=== PATIENT | female | born 1940 | race Caucasian/White ===

== ENCOUNTER → 2020-02-23 | Outpatient (CLI) | payer MEDICARE, OTHER ==
--- NOTE | 2020-02-23 16:55 | Diagnostic Imaging Report ---
INDICATION: Right shoulder pain. COMPARISON: None available. TECHNIQUE: Three views of the right shoulder are obtained. FINDINGS: There is some subchondral irregularity involving the superior aspect of the humeral head. There is some ill definition in the superior glenoid as well. There appear to be some erosive changes of the distal clavicle. No appreciable fracture. IMPRESSION: 1. Nonspecific erosive changes are present involving the glenohumeral and acromioclavicular joints. This raises the possibility of septic arthritis. If patient is able, MRI of the right shoulder without and with IV contrast may be beneficial for further assessment. Alternatively, consider arthrocentesis for further assessment. Dictated by: Dictated on workstation # [id number]
== END ==
LOC: RAD FS 15:27
PROVIDERS: ATTEND Family Medicine
DX: M25.511 Pain in right shoulder (principal)
CPT/HCPCS: 73030

== ENCOUNTER 2020-06-14 17:33 | Emergency (ER) | payer MEDICARE ==
[~2020-06-14] VITALS: Ht 152.4 cm; Wt 53.7 kg
[2020-06-14] MEDS ORDERED: ONDANSETRON 4 MG (ZOFRAN) ORAL DISSOLVE TAB PO STA (17:53)
[2020-06-14] MEDS ORDERED: LIDOCAINE 1% INJ 20 ML 20 ML VIAL ONE (18:05)
[2020-06-14] MEDS ORDERED: LIDOCAINE/EPI 2% 1:100,00 (XYLOCAINE) 20 ML VIAL ONE (18:15)
[2020-06-14 18:16] LABS: BASOPHILS % (AUTO) 0 % (0-10); EOSINOPHILS # (AUTO) 0.1 10^3/uL (0.0-0.3); EOSINOPHILS % (AUTO) 1 % (0-10); HEMATOCRIT 29 % (35-52); HEMOGLOBIN 9.5 G/DL (11.5-16.0); LYMPHOCYTES # (AUTO) 1.2 X 10^3 (1.0-4.0); LYMPHOCYTES % (AUTO) 10 % (12-44); MEAN CORPUSCULAR HEMOGLOBIN 30 PG (25-34); MEAN CORPUSCULAR HGB CONC 32 G/DL (32-36); MEAN CORPUSCULAR VOLUME 92 FL (80-99); MEAN PLATELET VOLUME 8.8 FL (7.4-10.4); MONOCYTES # (AUTO) 0.7 X 10^3 (0.0-1.0); MONOCYTES % (AUTO) 7 % (0-12); NEUTROPHILS # (AUTO) 9.1 X 10^3 (1.8-7.8); NEUTROPHILS % (AUTO) 81 % (42-75); PLATELET COUNT 339 10^3/uL (130-400); WHITE BLOOD COUNT 11.1 10^3/uL (4.3-11.0)
[2020-06-14 18:25] LABS: ALBUMIN 3.6 GM/DL (3.2-4.5); BILIRUBIN,TOTAL 0.3 MG/DL (0.1-1.0); CALCIUM 9.7 MG/DL (8.5-10.1); CREATININE SERUM 10.44 MG/DL (0.60-1.30); TOTAL PROTEIN 6.6 GM/DL (6.4-8.2)
[2020-06-14 18:26] LABS: BAND NEUTROPHILS 1 %; EOSINOPHILS % (MANUAL) 1 %; LYMPHOCYTES % (MANUAL) 10 %; MONOCYTES % (MANUAL) 6 %; NEUTROPHILS % (MANUAL) 82 %
[2020-06-14 18:27] LABS: RBC MORPH NORMAL
--- NOTE | 2020-06-14 18:27 | Diagnostic Imaging Report ---
PROCEDURE: CT head, face, and cervical spine without contrast. TECHNIQUE: Multiple contiguous axial images were obtained through the head, neck, and facial bones without the use of intravenous contrast. Sagittal and coronal reformations through the cervical spine and facial bones were also performed. Auto Exposure Controls were utilized during the CT exam to meet ALARA standards for radiation dose reduction. INDICATION: Fall striking the head, lacerations. COMPARISON: I have no previous. FINDINGS: CT HEAD: There is ventriculomegaly of uncertain acuity. There is periventricular white matter hypodensity which may be chronic small vessel sequelae but can also be seen in the setting of transependymal resorption of CSF. There is some atrophy but the ventriculomegaly is out of proportion to the degree of sulcation. The basilar cisterns are patent. There is no sulcal effacement. There is no evidence for elevated intracerebral pressures. There is no calvarial fracture deformity. There is no hemo-sinus. The mastoid air cells and middle ear cavities are clear. CERVICAL SPINE: There are degenerative changes to the discs, endplates, and facets, greatest at C5-C6 and C6-C7. No high-grade stenosis. No cervical fracture or paravertebral hemorrhage. No facet joint dislocation. No bony destruction. There are vascular calcifications of the carotids. Structures of the larynx showed no deformity. The central skull base was intact. CT FACIAL BONES: The mandible appeared intact. There is no dislocation of the temporomandibular joints. Mastoid air cells and middle ear cavities are clear. The zygomatic arches were intact. Pterygoid plates are intact. The nasal bones and bony nasal septum are intact. The wasserman of the maxillary sinuses and bony orbital wasserman are intact. There is soft tissue injury and swelling in preseptal and left premaxillary space where there is a soft tissue hematoma measuring 2.3 x 2.0 cm. No postseptal or retrobulbar hematoma. The globe morphologies and densities appeared unremarkable. No proptosis. There is supraorbital scalp laceration. The underlying calvarium appeared intact. The right frontal sinus is aplastic. The left frontal sinuses are hypoplastic but clear. The anterior and posterior wasserman of the frontal sinuses are intact. The sphenoids are clear. The ethmoid air cells are clear. The nasal septum and nasal bones as well as anterior maxillary spine are intact. IMPRESSION: 1. CT head: Atrophy and hydrocephalus with nonspecific periventricular white matter disease. No hemorrhage or elevated intracerebral pressures and no abnormal extra-axial fluid collection. 2. CT cervical spine: Degenerative change but no fracture or traumatic malalignment. 3. CT facial bones: Soft tissue swelling, scalp injury, and premaxillary hematoma. However, no facial fracture or hemo-sinus identified. Dictated by: Dictated on workstation # [id number]
[2020-06-14] MEDS ORDERED: LIDOCAINE/EPI 2% 1:100,00 (XYLOCAINE) 20 ML VIAL INJ ONE (18:30)
[2020-06-14] MEDS ORDERED: TETANUS,DIPTH,PERTUSS P/F (BOOSTRIX) 0.5 ML VIAL IM ONE (18:30)
[2020-06-14] MEDS ORDERED: cloNIDine 0.1 MG (CATAPRES) TAB PO ONE (18:30)
--- NOTE | 2020-06-14 18:59 | ED General ---
General Chief Complaint: Trauma-Non Activation Stated Complaint: FALL; HEAD INJ Nursing Triage Note: see triage note Nursing Sepsis Screen: No Definite Risk Source of Information: Patient Exam Limitations: No Limitations History of Present Illness Date Seen by Provider: Jun 14, 2020 Time Seen by Provider: 17:40 Initial Comments Patient is a 79-year-old dialysis patient who had accidental fall from standing while outdoors. Patient fell lost balance and struck her head. She landed on her face. No loss of consciousness. Reports mild headache with facial pain and left orbital contusion with left forehead laceration. Patient denies feeling dizzy. No nausea vomiting midline neck pain. Has superficial abrasions on her hand as well as dried blood. Tetanus is out of date. No other injuries or pain complaints. Patient is on a daily aspirin but is not on any additional blood thinners. Patient lives at home with family Location Injury Occurred: home Timing/Duration: 1/2 Hour Severity: Moderate Modifying Factors: improves with Other Associated Systoms: Other Allergies and Home Medications Allergies Coded Allergies: hydrocodone (Verified Adverse Reaction, Unknown, nausea/vomiting, 06/14/20) Patient Home Medication List Home Medication List Reviewed: Yes Review of Systems Review of Systems Constitutional: see HPI EENTM: see HPI Respiratory: see HPI Cardiovascular: see HPI Gastrointestinal: see HPI Genitourinary: see HPI Musculoskeletal: see HPI Skin: see HPI Psychiatric/Neurological: See HPI Hematologic/Lymphatic: See HPI Immunological/Allergic: see HPI All Other Systems Reviewed Negative Unless Noted: Yes Past Jflzdij-Qaadxe-Wyvbsb Hx Patient Social History Alcohol Use: Denies Use Smoking Status: Never a Smoker 2nd Hand Smoke Exposure: No Recent Infectious Disease Expo: No Physical Exam Vital Signs Vital Signs - First Documented 06/14/20 17:38 Temp 36.4 Pulse 102 Resp 18 B/P (MAP) 199/91 (127) Pulse Ox 100 O2 Delivery Room Air Capillary Refill : Less Than 3 Seconds Height, Weight, BMI Height: '" Weight: lbs. oz. 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 Progress/Results/Core Measures Suspected Sepsis Recent Fever Within 48 Hours: No Infection Criteria Present: None New/Unexplained Altered Menta: No Sepsis Screen: No Definite Risk SIRS Temperature: Pulse: 102 Respiratory Rate: 18 Laboratory Tests 06/14/20 17:55: White Blood Count 11.1H Blood Pressure 199 /91 Mean: 127 Laboratory Tests 06/14/20 17:55: Creatinine 10.44H, Platelet Count 339, Total Bilirubin 0.3 Results/Orders Lab Results Laboratory Tests Test 06/14/20 17:55 Range/Units White Blood Count 11.1 H 4.3-11.0 10^3/uL Red Blood Count 3.18 L 4.35-5.85 10^6/uL Hemoglobin 9.5 L 11.5-16.0 G/DL Hematocrit 29 L 35-52 % Mean Corpuscular Volume 92 80-99 FL Mean Corpuscular Hemoglobin 30 25-34 PG Mean Corpuscular Hemoglobin Concent 32 32-36 G/DL Red Cell Distribution Width 12.7 10.0-14.5 % Platelet Count 339 130-400 10^3/uL Mean Platelet Volume 8.8 7.4-10.4 FL Immature Granulocyte % (Auto) 1 % Neutrophils (%) (Auto) 81 H 42-75 % Lymphocytes (%) (Auto) 10 L 12-44 % Monocytes (%) (Auto) 7 0-12 % Eosinophils (%) (Auto) 1 0-10 % Basophils (%) (Auto) 0 0-10 % Neutrophils # (Auto) 9.1 H 1.8-7.8 X 10^3 Lymphocytes # (Auto) 1.2 1.0-4.0 X 10^3 Monocytes # (Auto) 0.7 0.0-1.0 X 10^3 Eosinophils # (Auto) 0.1 0.0-0.3 10^3/uL Basophils # (Auto) 0.0 0.0-0.1 10^3/uL Immature Granulocyte # (Auto) 0.1 0.0-0.1 10^3/uL Neutrophils % (Manual) 82 % Lymphocytes % (Manual) 10 % Monocytes % (Manual) 6 % Eosinophils % (Manual) 1 % Band Neutrophils 1 % Blood Morphology Comment NORMAL Sodium Level 141 135-145 MMOL/L Potassium Level 4.0 3.6-5.0 MMOL/L Chloride Level 98 98-107 MMOL/L Carbon Dioxide Level 23 21-32 MMOL/L Anion Gap 20 H 5-14 MMOL/L Blood Urea Nitrogen 73 H 7-18 MG/DL Creatinine 10.44 H 0.60-1.30 MG/DL Estimat Glomerular Filtration Rate 4 BUN/Creatinine Ratio 7 Glucose Level 120 H 70-105 MG/DL Calcium Level 9.7 8.5-10.1 MG/DL Corrected Calcium 10.0 8.5-10.1 MG/DL Total Bilirubin 0.3 0.1-1.0 MG/DL Aspartate Amino Transf (AST/SGOT) 16 5-34 U/L Alanine Aminotransferase (ALT/SGPT) 14 0-55 U/L Alkaline Phosphatase 144 H 40-136 U/L Total Protein 6.6 6.4-8.2 GM/DL Albumin 3.6 3.2-4.5 GM/DL My Orders Orders - BRITTNEY LINN DO Cbc And Manual Diff (06/14/20 17:43) Comprehensive Metabolic Panel (06/14/20 17:43) Ct Head/Face/Cervical Wo (06/14/20 17:52) Ondansetron Oral Dissolve Tab (Zofran (06/14/20 17:53) Tramadol Tablet (Ultram Tablet) (06/14/20 18:00) Lidocaine 1% Inj 20 Ml (Xylocaine 1% Inj (06/14/20 18:05) Lidocaine/Epi 2% 1:100,000 (Xylocaine/Ep (06/14/20 18:15) Lidocaine/Epi 2% 1:100,000 (Xylocaine/Ep (06/14/20 18:30) Dipht,Pertuss(Acell),Tet Adult (Boostrix (06/14/20 18:30) Clonidine Tablet (Catapres Tablet) (06/14/20 18:30) Medications Given in ED Current Medications Medications Dose Ordered Sig/Eunice Route Start Time Stop Time Status Last Admin Dose Admin Clonidine HCl 0.1 mg ONCE ONCE PO 06/14/20 18:30 06/14/20 18:32 DC 06/14/20 18:36 0.1 MG Diphtheria/ Tetanus/Acell Pertussis 0.5 ml ONCE ONCE IM 06/14/20 18:30 06/14/20 18:32 DC 06/14/20 18:37 0.5 ML Lidocaine/ Epinephrine 20 ml ONCE ONCE INJ 06/14/20 18:30 06/14/20 18:31 DC 06/14/20 18:24 20 ML Tramadol HCl 50 mg ONCE ONCE PO 06/14/20 18:00 06/14/20 18:01 DC 06/14/20 18:00 50 MG Vital Signs/I&O 06/14/20 17:38 Temp 36.4 Pulse 102 Resp 18 B/P (MAP) 199/91 (127) Pulse Ox 100 O2 Delivery Room Air Capillary Refill : Less Than 3 Seconds Blood Pressure Mean: 127 Departure Communication (Admissions) Patient with active oozing despite suturing likely secondary to blood pressure, aspirin and platelet dysfunction secondary to dialysis state. Tetanus updated. Blood pressure addressed. Typical closed head injury instructions provided to patient and family members. I explained to them she is at risk of subdural hematoma which is subacute finding. They agree to follow-up with PCP for reevaluation and return to the ED if new or worsening symptoms. Impression Primary Impression: Closed head injury Additional Impressions: Laceration of forehead Periorbital contusion of left eye Disposition: HOME, SELF-CARE Condition: Stable Departure-Patient Inst. Decision time for Depature: 19:05 Referrals: CALEB BELTRAN MD (PCP/Family) Primary Care Physician Patient Instructions: Minor Head Injury, Adult ED, Black Eye, Laceration Repair With Stitches (DC) Add. Discharge Instructions: Kassie was evaluated in the emergency department for fall resulting in a facial injury. A small laceration was closed over her left forehead. Please leave pressure dressing on place for the next 24 to 48 hours. Sutures are absorbable and do not require removal. Watch closely at home for signs of confusion, worsening headache, vomiting, loss of lines or other signs of worsening head injury Take tramadol for pain and Zofran as needed for nausea Follow-up with your PCP in 3 to 5 days for reevaluation. Return to the ED immediately if new or concerning symptoms All discharge instructions reviewed with patient and/or family. Voiced understanding. Scripts Tramadol HCl (Tramadol HCl) 50 Mg Tablet 50 MG PO Q6H PRN for PAIN for 3 Days, #10 TAB 0 Refills Prov: BRITTNEY LINN DO 06/14/20 Ondansetron (Ondansetron Odt) 4 Mg Tab.rapdis 4 MG PO Q6H, #10 TAB Prov: BRITTNEY LINN DO 06/14/20 BRITTNEY LINN DO Jun 14, 2020 18:59
[2020-06-14] MEDS ORDERED: ONDA4TAB11 PO (19:08)
[2020-06-14] MEDS ORDERED: TRM50T PO (19:08)
[2020-06-14 19:30] VITALS: BP 184/81
== END 2020-06-14 19:30 | disposition home or self-care (01) ==
LOC: EDUNIT# 17:33 → ER FS 17:35
DX: S01.81XA Laceration without foreign body of other part of head, initial encounter (principal); S05.12XA Contusion of eyeball and orbital tissues, left eye, initial encounter; S09.90XA Unspecified injury of head, initial encounter; Z23 Encounter for immunization; Z88.5 Allergy status to narcotic agent; W22.8XXA Striking against or struck by other objects, initial encounter
CPT/HCPCS: 12011; 36415; 70450; 70486; 72125; 80053; 85007; 85027; 90715

== ENCOUNTER → 2020-06-28 | Outpatient (CLI) | payer MEDICARE ==
[~2020-06-28] MED LIST: ONDA4TAB11 PO; TRM50T PO
[2020-06-28 15:40] LABS: BASOPHILS % (AUTO) 0 % (0-10); EOSINOPHILS % (AUTO) 0 % (0-10); HEMATOCRIT 31 % (35-52); HEMOGLOBIN 9.2 G/DL (11.5-16.0); LYMPHOCYTES % (AUTO) 6 % (12-44); MEAN CORPUSCULAR HEMOGLOBIN 29 PG (25-34); MEAN CORPUSCULAR HGB CONC 30 G/DL (32-36); MEAN CORPUSCULAR VOLUME 98 FL (80-99); MEAN PLATELET VOLUME 8.7 FL (7.4-10.4); MONOCYTES % (AUTO) 8 % (0-12); NEUTROPHILS % (AUTO) 85 % (42-75); PLATELET COUNT 392 10^3/uL (130-400); WHITE BLOOD COUNT 11.4 10^3/uL (4.3-11.0)
[2020-06-28 15:41] LABS: BAND NEUTROPHILS 2 %; EOSINOPHILS % (MANUAL) 1 %; LYMPHOCYTES # (AUTO) 0.7 X 10^3 (1.0-4.0); LYMPHOCYTES % (MANUAL) 7 %; MONOCYTES # (AUTO) 0.9 X 10^3 (0.0-1.0); MONOCYTES % (MANUAL) 8 %; NEUTROPHILS # (AUTO) 9.7 X 10^3 (1.8-7.8); NEUTROPHILS % (MANUAL) 81 %
[2020-06-28 15:42] LABS: BASOPHILS % (MANUAL) 1 %; RBC MORPH NORMAL
== END ==
LOC: LAB FS 14:36
PROVIDERS: ATTEND Family Medicine
DX: R53.1 Weakness (principal); R53.83 Other fatigue
CPT/HCPCS: 36415; 85007; 85027

== ENCOUNTER → 2020-08-12 | Outpatient (CLI) | payer OTHER, MEDICARE | LOC: GIR 14:53 | PROVIDERS: ATTEND Internal Medicine Nephrology | DX: Z01.89 Encounter for other specified special examinations (principal) | CPT/HCPCS: 84145 ==

== ENCOUNTER 2020-08-14 17:46 | Emergency (ER) | payer MEDICARE ==
[2020-08-14 18:18] LABS: BASOPHILS % (AUTO) 1 % (0-10); EOSINOPHILS % (AUTO) 2 % (0-10); HEMATOCRIT 31 % (35-52); HEMOGLOBIN 9.8 G/DL (11.5-16.0); LYMPHOCYTES % (AUTO) 18 % (12-44); MEAN CORPUSCULAR HEMOGLOBIN 29 PG (25-34); MEAN CORPUSCULAR HGB CONC 32 G/DL (32-36); MEAN CORPUSCULAR VOLUME 93 FL (80-99); MEAN PLATELET VOLUME 8.9 FL (7.4-10.4); MONOCYTES % (AUTO) 8 % (0-12); NEUTROPHILS % (AUTO) 71 % (42-75); PLATELET COUNT 369 10^3/uL (130-400); WHITE BLOOD COUNT 10.3 10^3/uL (4.3-11.0)
[2020-08-14 18:19] LABS: BASOPHILS # (AUTO) 0.1 10^3/uL (0.0-0.1); LYMPHOCYTES # (AUTO) 1.9 X 10^3 (1.0-4.0); MONOCYTES # (AUTO) 0.8 X 10^3 (0.0-1.0); NEUTROPHILS # (AUTO) 7.2 X 10^3 (1.8-7.8)
--- NOTE | 2020-08-14 18:23 | ED General ---
General Chief Complaint: Dizziness/Syncope Stated Complaint: FREQUENT FALLS History of Present Illness Date Seen by Provider: Aug 14, 2020 Time Seen by Provider: 18:00 Initial Comments 71-year-old female presents via EMS with complaint of multiple falls recently as well as a syncopal episode just prior to arrival today. History of present illness, patient had a big fall and head injury about 1 month ago with large bruising of her face. Since then family states she has had episodes of confusion and inability to care for herself. She has been living independently and doing her own home peritoneal dialysis. Last week seen by her primary physician, Dr. Huynh and was advised to go to [facility] for evaluation including labs and CT. Care was coordinated for her to go to 2 days ago through the ER with hopes for neurologic evaluation and patient was never seen after 6 hours. Patient is without complaint, pleasant and denies pain or suspected injury. Her daughters give most of her recent history. Allergies and Home Medications Allergies Coded Allergies: hydrocodone (Verified Adverse Reaction, Unknown, nausea/vomiting, 06/14/20) Home Medications Ondansetron 4 Mg Tab.rapdis, 4 MG PO Q6H Prescribed by: BRITTNEY LINN on 06/14/201907 Tramadol HCl 50 Mg Tablet, 50 MG PO Q6H PRN for PAIN Prescribed by: BRITTNEY LINN on 06/14/201907 Patient Home Medication List Home Medication List Reviewed: Yes Review of Systems Review of Systems Constitutional: No chills, No fever, No malaise; weakness EENTM: no symptoms reported Respiratory: No cough, No short of breath Cardiovascular: No chest pain, No edema, No palpitations; syncope Gastrointestinal: No abdominal pain, No nausea, No vomiting Musculoskeletal: No back pain, No joint pain Skin: No change in color, No rash Psychiatric/Neurological: Denies Headache, Denies Numbness, Denies Paresthesia Past Xeeyjqz-Qcuhmb-Obvaen Hx Past Med/Social Hx: Reviewed Nursing Past Med/Soc Hx Patient Social History 2nd Hand Smoke Exposure: No Physical Exam Vital Signs Vital Signs - First Documented 08/14/20 08/14/20 18:07 23:30 Temp 36.5 Pulse 97 Resp 16 B/P (MAP) 186/65 (105) Pulse Ox 100 O2 Delivery Room Air Capillary Refill : Height, Weight, BMI Height: '" Weight: lbs. oz. 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 Norm as Tested Skin: Normal Color, Warm/Dry Focused Exam Lactate Level 08/14/20 18:40: Lactic Acid Level 1.19 Lactic Acid Level Laboratory Tests Test 08/14/20 18:40 Lactic Acid Level 1.19 MMOL/L (0.50-2.00) Procedures/Interventions Suture Size: 5-0 Progress/Results/Core Measures Suspected Sepsis SIRS Temperature: Pulse: Respiratory Rate: Laboratory Tests 08/14/20 18:10: White Blood Count 10.3 Blood Pressure / Mean: 08/14/20 18:40: Lactic Acid Level 1.19 Laboratory Tests 08/14/20 18:10: Creatinine 11.68H, Platelet Count 369, Total Bilirubin 0.3 Results/Orders Lab Results Laboratory Tests Test 08/14/20 18:10 08/14/20 18:40 Range/Units White Blood Count 10.3 4.3-11.0 10^3/uL Red Blood Count 3.35 L 4.35-5.85 10^6/uL Hemoglobin 9.8 L 11.5-16.0 G/DL Hematocrit 31 L 35-52 % Mean Corpuscular Volume 93 80-99 FL Mean Corpuscular Hemoglobin 29 25-34 PG Mean Corpuscular Hemoglobin Concent 32 32-36 G/DL Red Cell Distribution Width 15.1 H 10.0-14.5 % Platelet Count 369 130-400 10^3/uL Mean Platelet Volume 8.9 7.4-10.4 FL Immature Granulocyte % (Auto) 1 % Neutrophils (%) (Auto) 71 42-75 % Lymphocytes (%) (Auto) 18 12-44 % Monocytes (%) (Auto) 8 0-12 % Eosinophils (%) (Auto) 2 0-10 % Basophils (%) (Auto) 1 0-10 % Neutrophils # (Auto) 7.2 1.8-7.8 X 10^3 Lymphocytes # (Auto) 1.9 1.0-4.0 X 10^3 Monocytes # (Auto) 0.8 0.0-1.0 X 10^3 Eosinophils # (Auto) 19.0 H 0.0-0.3 10^3/uL Basophils # (Auto) 0.1 0.0-0.1 10^3/uL Immature Granulocyte # (Auto) 0.1 0.0-0.1 10^3/uL Sodium Level 134 L 135-145 MMOL/L Potassium Level 4.5 3.6-5.0 MMOL/L Chloride Level 94 L 98-107 MMOL/L Carbon Dioxide Level 21 21-32 MMOL/L Anion Gap 19 H 5-14 MMOL/L Blood Urea Nitrogen 97 H 7-18 MG/DL Creatinine 11.68 H 0.60-1.30 MG/DL Estimat Glomerular Filtration Rate 3 BUN/Creatinine Ratio 8 Glucose Level 134 H 70-105 MG/DL Calcium Level 9.1 8.5-10.1 MG/DL Corrected Calcium 9.7 8.5-10.1 MG/DL Total Bilirubin 0.3 0.1-1.0 MG/DL Aspartate Amino Transf (AST/SGOT) 13 5-34 U/L Alanine Aminotransferase (ALT/SGPT) 14 0-55 U/L Alkaline Phosphatase 139 H 40-136 U/L Troponin I < 0.30 <0.30 NG/ML Total Protein 6.3 L 6.4-8.2 GM/DL Albumin 3.3 3.2-4.5 GM/DL Lactic Acid Level 1.19 0.50-2.00 MMOL/L My Orders Orders - ROVENSTSTEPHANIE HEAD DO Ed Iv/Invasive Line Start (08/14/20 18:16) Cbc With Automated Diff (08/14/20 18:16) Comprehensive Metabolic Panel (08/14/20 18:16) Lactic Acid Analyzer (08/14/20 18:16) Troponin I Fs (08/14/20 18:16) Urinalysis (08/14/20 18:16) Ct Head Wo (08/14/20 18:16) Ekg Tracing (08/14/20 19:11) Vital Signs/I&O 08/14/20 08/14/20 18:07 23:30 Temp 36.5 36.6 Pulse 97 99 Resp 16 17 B/P (MAP) 186/65 (105) 155/92 (105) Pulse Ox 100 95 O2 Delivery Room Air Capillary Refill : Progress Note : Progress Note 1914- talked to Dr Amina Baker (Primary Care for pt) who informed of MRI findings 06/29/2020 @ [facility] - "possible [employer] hydrocephalus and ventriculomegaly" She would like for her to be seen @ Neuro and states they do not have Neuro to see her for this in [place]. I agreed to try to get her transferred or to arrange follow up care Called [facility] transfer, no beds and didn't meet inpatient criteria for Neuro consult. Attempted to admit closer to home, family said, NO, to suggestion of [facility]. Tried [facility] (1930) and spoke to Dr Villalba, who would have accepted, but can not take pt on dialysis (even if peritoneal). Called [facility] transfer (2019) and accepted by Dr Lopez for Dr Herman @ 2039 ECG Initial ECG Impression Date: Aug 14, 2020 Initial ECG Impression Time: 18:00 Initial ECG Rate: 94 Initial ECG Rhythm: Normal Sinus Initial ECG Intervals: Normal Initial ECG Impression: Normal Initial ECG Comparisson: No Previous ECG Available Diagnostic Imaging Diagonstic Imaging: CT Comments Date of Exam:08/14/20 CT HEAD WO INDICATION: Fell today, hit head. Fell previously six weeks ago. EXAMINATION: CT brain without contrast, 08/14/2020. All CT scans use one or more of the following dose optimizing techniques: automated exposure control, MA and/or KvP adjustment based on patient size and exam type or iterative reconstruction. COMPARISON: 06/14/2020. FINDINGS: Diffuse chronic ischemic disease is seen in a periventricular and deep white matter distribution. There is no acute hemorrhage or infarct. No mass, mass effect or midline shift. Ventricles prominent but stable from previous imaging. No displaced or depressed calvarial fracture is appreciated. The paranasal sinuses and mastoid air cells are clear. IMPRESSION: Diffuse chronic disease. No acute intracranial process. Dictated on workstation # [id number] Dict: 08/14/201836 Trans: 08/14/201844 [facility] [id number] Interpreted by: SUDARSHAN NEVAREZ MD Electronically signed by: Departure Impression Primary Impression: Episode of syncope Qualified Codes: R55 - Syncope and collapse Additional Impressions: Frequent falls Altered mental status Qualified Codes: R41.82 - Altered mental status, unspecified Disposition: 02 XFER [facility] HOSP ([facility]) Condition: Stable Transfer Transfer Reason: Exceeds level of care Time Spoke to Accepting Phy: 20:40 Transfer Progress Notes see progress section Transfer Facility: [facility] Method of Transfer: EMS Departure-Patient Inst. Decision time for Depature: 19:30 Referrals: CALEB BELTRAN MD (PCP/Family) Primary Care Physician Patient Instructions: Syncope (Fainting) (DC), Altered Mental Status (DC) Add. Discharge Instructions: Keep your appointment @ [facility] "[facility] Neurology" clinic scheduled for [address] Whelan. Call [phone] to let them know of your episode of passing out today and see if there is any possibility to be seen earlier. Return to the ER for any sudden or worsening symptoms. All discharge instructions reviewed with patient and/or family. Voiced understanding. STEPHANIE CLEANING DO Aug 14, 2020 18:23
[2020-08-14 18:40] LABS: CARBON DIOXIDE 21 MMOL/L (21-32); CHLORIDE 94 MMOL/L (98-107); POTASSIUM 4.5 MMOL/L (3.6-5.0); SODIUM 134 MMOL/L (135-145)
[2020-08-14 18:41] LABS: ALANINE AMINOTRANSFERASE 14 U/L (0-55); ALBUMIN 3.3 GM/DL (3.2-4.5); ALKALINE PHOSPHATASE 139 U/L (40-136); BILIRUBIN,TOTAL 0.3 MG/DL (0.1-1.0); BUN/CREATININE RATIO 8; CALCIUM 9.1 MG/DL (8.5-10.1); CREATININE SERUM 11.68 MG/DL (0.60-1.30); GFR ESTIMATED 3; GLUCOSE 134 MG/DL (70-105); TOTAL PROTEIN 6.3 GM/DL (6.4-8.2)
--- NOTE | 2020-08-14 18:46 | Diagnostic Imaging Report ---
INDICATION: Fell today, hit head. Fell previously six weeks ago. EXAMINATION: CT brain without contrast, 08/14/2020. All CT scans use one or more of the following dose optimizing techniques: automated exposure control, MA and/or KvP adjustment based on patient size and exam type or iterative reconstruction. COMPARISON: 06/14/2020. FINDINGS: Diffuse chronic ischemic disease is seen in a periventricular and deep white matter distribution. There is no acute hemorrhage or infarct. No mass, mass effect or midline shift. Ventricles prominent but stable from previous imaging. No displaced or depressed calvarial fracture is appreciated. The paranasal sinuses and mastoid air cells are clear. IMPRESSION: Diffuse chronic disease. No acute intracranial process. Dictated by: Dictated on workstation # [id number]
[2020-08-14 23:30] VITALS: BP 155/92
== END 2020-08-14 23:30 | disposition short-term general hospital (02) ==
LOC: EDUNIT# 17:46 → ER FS 17:54
DX: R55 Syncope and collapse (principal); R29.6 Repeated falls; R41.82 Altered mental status, unspecified
CPT/HCPCS: 36415; 70450; 80053; 83605; 84484; 85025; 93005

== ENCOUNTER → 2020-08-19 | Outpatient (CLI) | payer MEDICARE ==
[2020-08-19 13:31] LABS: HEMATOCRIT 30 % (35-52); HEMOGLOBIN 9.7 G/DL (11.5-16.0); MEAN CORPUSCULAR HEMOGLOBIN 30 PG (25-34); MEAN CORPUSCULAR HGB CONC 32 G/DL (32-36); MEAN CORPUSCULAR VOLUME 92 FL (80-99); WHITE BLOOD COUNT 11.8 10^3/uL (4.3-11.0)
[2020-08-19 13:32] LABS: BASOPHILS % (AUTO) 0 % (0-10); EOSINOPHILS % (AUTO) 0 % (0-10); LYMPHOCYTES # (AUTO) 1.8 X 10^3 (1.0-4.0); LYMPHOCYTES % (AUTO) 15 % (12-44); MEAN PLATELET VOLUME 8.8 FL (7.4-10.4); MONOCYTES # (AUTO) 0.8 X 10^3 (0.0-1.0); MONOCYTES % (AUTO) 7 % (0-12); NEUTROPHILS # (AUTO) 9.1 X 10^3 (1.8-7.8); NEUTROPHILS % (AUTO) 78 % (42-75); PLATELET COUNT 340 10^3/uL (130-400)
[2020-08-19 13:40] LABS: CREATININE SERUM 9.94 MG/DL (0.60-1.30); POTASSIUM 4.3 MMOL/L (3.6-5.0)
[2020-08-19 13:41] LABS: ALBUMIN 3.1 GM/DL (3.2-4.5); BILIRUBIN,TOTAL 0.3 MG/DL (0.1-1.0); CALCIUM 8.9 MG/DL (8.5-10.1); TOTAL PROTEIN 6.1 GM/DL (6.4-8.2)
== END ==
LOC: IHC 13:07
PROVIDERS: ATTEND Internal Medicine Nephrology
DX: I10 Essential (primary) hypertension (principal); R55 Syncope and collapse; Z99.2 Dependence on renal dialysis
CPT/HCPCS: 80053; 85025

== ENCOUNTER → 2020-08-19 | Outpatient (CLI) | payer MEDICARE | LOC: LAB FS 20:47 | PROVIDERS: ATTEND Internal Medicine Nephrology | DX: I10 Essential (primary) hypertension (principal) | CPT/HCPCS: 87088 ==

== ENCOUNTER → 2020-09-07 | Outpatient (CLI) | payer MEDICARE | LOC: IHC 11:56 | PROVIDERS: ATTEND Internal Medicine Nephrology | DX: I12.0 Hypertensive chronic kidney disease with stage 5 chronic kidney disease or end stage renal disease (principal); N18.6 End stage renal disease; N39.0 Urinary tract infection, site not specified | CPT/HCPCS: 87088 ==

== ENCOUNTER 2020-11-22 15:32 | Emergency (ER) | payer MEDICARE ==
[~2020-11-22] VITALS: Ht 152.4 cm; Wt 52.2 kg
--- OUTSIDE RECORDS SUMMARY | 2020-11-22 15:42 | XMS REPORT | Clinical Summary ---
Author Author [facility] Organization [facility] Address Unknown Phone Unavailable Care Team Providers Care Part Maker Name Role Phone Nitish Walter MD PCP Allergies Comments Active Allergy Reactions Severity Noted Date Hydrocodone Nausea And 01/24/2017 Vomiting Influenza Virus Vaccines Angioedema 12/18/2016 Medications End Date Status Medication Sig Dispensed Refills Start Date Active amLODIPine (NORVASC) 10 Take 10 mg by 0 MG tablet mouth daily. Recently holding due to low BP Active aspirin 81 MG EC tablet Take 81 mg by 0 mouth daily. Active ferrous fumarate Take 1 tablet 0 (FERRETTS) 325 mg (106 mg by mouth iron) Tab daily. Active calcitriol (ROCALTROL) Take 0.25 mcg 0 0.25 MCG capsule by mouth every other day. Active furosemide (LASIX) 20 MG Take 20 mg by 0 tablet mouth as needed. Active ferric citrate (AURYXIA) Take 2 0 210 mg iron Tab tablets by mouth with meals. Active Problems Not on file Family History Medical History Relation Name Comments Heart disease Brother Cancer Brother Pancreatitis Daughter No Known Problems Daughter Heart disease Father No Known Problems Maternal Grandfather No Known Problems Maternal Grandmother No Known Problems Mother No Known Problems Paternal Grandfather No Known Problems Paternal Grandmother No Known Problems Sister Hypertension Sister Hypertension Son Relation Name Status Comments Brother Alive Brother Daughter Alive Daughter Alive Father Maternal Grandfather Maternal Grandmother Mother Paternal Grandfather Paternal Grandmother Sister Alive Sister Alive Son Alive Son Alive Social History Date Tobacco Use Types Packs/Day Years Used Never Smoker Smokeless Tobacco: Never Used Tobacco Cessation: Counseling Given: No Comments Alcohol Use Standard Drinks/Week No 0 (1 standard drink = 0.6 o z pure alcohol) Sex Assigned at Date Recorded Not on file Last Filed Vital Signs Reading Time Taken Comments Vital Sign 139/77 06/12/2017 8:47 AM CDT Blood Pressure 113 06/12/2017 8:47 AM CDT Pulse 36.4 C (97.6 F) 06/12/2017 8:47 AM CDT Temperature 18 06/12/2017 8:47 AM CDT Respiratory Rate 100% 06/12/2017 8:47 AM CDT Oxygen Saturation - - Inhaled Oxygen Concentration 57.2 kg (126 lb) 06/12/2017 8:47 AM CDT Weight 147.3 cm (4' 10") 06/12/2017 8:47 AM CDT Height 26.33 06/12/2017 8:47 AM CDT Body Mass Index Plan of Treatment Health Maintenance Due Date Last Done Comments Advance Directive has 1940 been filed Medicare Annual Wellness 1940 Td/Tdap# 1940 Pneumococcal Vaccine: 65+ 09/07/1946 Years (1 of 4 - PCV13) COVID-19 Vaccine (1) 1953 Zoster Vaccine# (1 of 2) 09/07/1991 Advance Directive 2006 Conversation Depression Screening 2006 PHQ-9 # Fall Risk Assessment # 2006 Osteoporosis Screening 2006 Patient Needs Advance 2006 Directive Results Not on filefrom Last 3 Months Insurance Type Payer Benefit Subscriber ID Effective Phone Address Plan / Dates Group MEDICARE REPLACEMENT PLAN HUMANA [id number] 2017-P MEDICARE resent MEDICARE REPLACEMENT PLAN HUMANA [id number] 2017-P MEDICARE resent [phone] Magdalena Kaufman Personal/F Self [phone] [place] (Home) [place], [place] [phone] Magdalena Kaufman Personal/F Self [address] [place] (Home) [place], [place] [phone] Magdalena Kaufman Transplant Self 1940 [address] (Home) [place], [place] [address] Advance Directives For more information, please contact: [phone] 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
--- OUTSIDE RECORDS SUMMARY | 2020-11-22 15:42 | XMS REPORT | Clinical Summary ---
Author Author [facility] Organization [facility] Address Unknown Phone Unavailable Care Team Providers Care Supervising Law Enforcement Analyst Name Role Phone Donald Neely MD Unavailable Amina Gamez MD Unavailable Nitish Walter MD PCP Source Comments Some departments are not documenting in the electronic medical record. If you d o not see the information that you expected, contact Release of Information in [facility] [employer] Information Management department at [phone] for further assistan ce in locating additional records.[facility] Allergies Comments Active Allergy Reactions Severity Noted Date Hydrocodone UNKNOWN Low 10/14/2016 Medications End Date Status Medication Sig Dispensed Refills Start Date Active FERRETTS 325 mg (106 mg 0 iron) tab 7 Active aspirin EC 81 mg tablet Take 81 mg by 0 mouth daily. Take with food. Active Problems Problem Noted Date CKD (chronic kidney disease), stage V 01/21/2018 Surgical History Surgery Date Site/Laterality Comments HX APPENDECTOMY 02/18/1982 - 02/17/1983 DIALYSIS FISTULA CREATION 09/25/2016 Left cimi no type- [place] Medical History Medical History Date Comments Shingles 2007 Chronic kidney disease Hypertension Family History Medical History Relation Name Comments Heart Disease Father None Reported Mother Relation Name Status Comments Father Mother Social History Date Tobacco Use Types Packs/Day Years Used Never Smoker Smokeless Tobacco: Never Used Comments Alcohol Use Standard Drinks/Week No 0 (1 standard drink = 0.6 o z pure alcohol) Sex Assigned at Date Recorded Female 09/28/2020 8:49 AM CDT Last Filed Vital Signs Reading Time Taken Comments Vital Sign 190/82 08/12/2020 11:04 PM CDT Blood Pressure - - Pulse 36.9 C (98.5 F) 08/12/2020 6:44 PM CDT Temperature - - Respiratory Rate 100% 08/12/2020 11:04 PM CDT Oxygen Saturation - - Inhaled Oxygen Concentration 52.2 kg (115 lb) 08/12/2020 6:44 PM CDT Weight 152.4 cm (5') 08/12/2020 6:44 PM CDT Height 22.46 08/12/2020 6:44 PM CDT Body Mass Index Plan of Treatment Health Maintenance Due Date Last Done Comments MEDICARE ANNUAL WELLNESS 1940 VISIT DTAP/TDAP VACCINES (1 - 09/07/1959 Tdap) HEPATITIS C SCREENING 09/07/1959 PHYSICAL (COMPREHENSIVE) 09/07/1959 EXAM SHINGLES RECOMBINANT 09/07/1991 VACCINE (1 of 2) OSTEOPOROSIS 2006 SCREENING/MONITORING PNEUMONIA (PPSV23) 2006 VACCINE (1 of 1 - PPSV23) INFLUENZA VACCINE 09/18/2020 Results Not on filefrom Last 3 Months Insurance Type Payer Benefit Subscriber ID Effective Phone Address Plan / Dates Group Medicare HUMANA MEDICARE HUMANA [id number] 2016-P GROUP resent MEDICARE PPO [phone] 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
[2020-11-22 15:45] VITALS: BP 138/66
--- NOTE | 2020-11-22 16:02 | ED General ---
General Chief Complaint: Respiratory Problems Stated Complaint: SOB Nursing Triage Note: PT ARRIVED BY PRIVATE VEHICLE WITH SON. PT HAS CHIEF COMPLAINT OF NEEDING A CT SCAN. SON SAID SHE HAD CHEST XRAY EARLIER AND DR. BELTRAN OR DR. ECHEVARRIA SAID SHE NEEDS TO HAVE A CT SCAN DONE DUE TO SOME FINDINGS. SON WAS UNSURE OF WHAT EXACTLY IS GOING ON, MAYBE SHE CAN'T TAKE A COMPLETE DEEP BREATH AND MAYBE AN ENLARGED HEART. PT IS NOT IN RESPIRATORY DISTRESS AND OXYGEN SATURATION IS AT 100%. DR. BELTRAN'S OFFICE WAS CALLED TO GET AN EXACT ANSWER OF WHAT IS GOING ON. PHYSICIAN, THIS RN AND TECH WERE IN THE ROOM INITIALLY AND VITALS WERE DONE. Source of Information: Patient Exam Limitations: No Limitations History of Present Illness Date Seen by Provider: Nov 22, 2020 Time Seen by Provider: 15:40 Initial Comments Patient is here from home via private vehicle. Her son brought her and after he received a call from the doctor's office stating that she needed to be evaluated in the emergency department. Currently she was seen by her dialysis nurse earlier today and there was concerns that she was unable to take a deep breath. She called patient's primary care doctor, Dr. Beltran, and a chest x-ray was ordered. The results of the chest x-ray were concerning for cardiomegaly without infiltrates and question of mild pneumoperitoneum. Patient is on peritoneal dialysis and this is not an uncommon finding per the law enforcement director. Patient was diagnosed with spontaneous bacterial peritonitis recently and is currently on antibiotics and doing well. Patient denies breathing problems, f ever, vomiting or abdominal pain. Currently has no concerns. She is unsure about why she was post to be here and her son who brought her is also unsure. We will call patient's primary care physician. Timing/Duration: 4-6 Hours Severity: Mild Associated Systoms: No Chest Pain, No Fever/Chills, No Nausea/Vomiting, No Shortness of Air, No Weakness Allergies and Home Medications Allergies Coded Allergies: hydrocodone (Verified Adverse Reaction, Unknown, nausea/vomiting, 06/14/20) Patient Home Medication List Home Medication List Reviewed: Yes Ondansetron (Ondansetron Odt) 4 Mg Tab.rapdis, 4 MG PO Q6H Prescribed by: BRITTNEY LINN on 06/14/201907 Tramadol HCl (Tramadol HCl) 50 Mg Tablet, 50 MG PO Q6H PRN for PAIN Prescribed by: BRITTNEY LINN on 06/14/201907 Review of Systems Review of Systems Constitutional: No chills, No fever EENTM: No nose congestion, No throat pain Respiratory: No cough, No short of breath Cardiovascular: No chest pain, No edema Gastrointestinal: No abdominal pain, No vomiting Genitourinary: No pain; other (Only make urine occasionally) Musculoskeletal: No back pain, No muscle pain Psychiatric/Neurological: No Symptoms Reported Past Faxrqod-Knbvke-Bgioxm Hx Patient Social History Tobacco Use?: No Smoking Status: Never a Smoker Substance use?: No Alcohol Use?: No Pt feels they are or have been: No Immunizations Up To Date First/Initial COVID19 Vaccinat: Mezzobit 2020 Second COVID19 Vaccination [place]: Mezzobit 2020 COVID19 Vaccine Cutter V Groove: Mezzobit Seasonal Allergies Seasonal Allergies: No Past Medical History Surgeries: Yes (fistula R arm. ) Respiratory: No Cardiac: Yes Hypertension Neurological: Yes Stroke Genitourinary: Yes Renal Failure, Dialysis (Peritoneal dialysis) Gastrointestinal: No Musculoskeletal: Yes Arthritis Endocrine: No HEENT: No Cancer: No Psychosocial: No Integumentary: No Family Medical History Reviewed Nursing Family Hx No Pertinent Family Hx Physical Exam Vital Signs Vital Signs - First Documented Capillary Refill : Less Than 3 Seconds Height, Weight, BMI Height: '" Weight: lbs. oz. kg; 22.00 BMI Method: General Appearance: No Apparent Distress, WD/WN HEENT: PERRL/EOMI, Pharynx Normal Neck: Non Tender, Supple Respiratory: Lungs Clear, Normal Breath Sounds Cardiovascular: Regular Rate, Rhythm, No Murmur Gastrointestinal: Non Tender, Soft Back: Normal Inspection, No CVA Tenderness, No Vertebral Tenderness Extremity: Normal Range of Motion, Non Tender Neurologic/Psychiatric: Alert, Oriented x3 Skin: Normal Color, Warm/Dry Procedures/Interventions Suture Size: 5-0 Progress/Results/Core Measures Suspected Sepsis SIRS Temperature: Pulse: 91 Respiratory Rate: 14 Blood Pressure 138 /66 Mean: 90 Results/Orders Vital Signs/I&O 11/22/20 11/22/20 15:45 15:45 Temp 36.4 Pulse 91 Resp 14 B/P (MAP) 138/66 (90) Pulse Ox 100 O2 Delivery Room Air Room Air Capillary Refill : Less Than 3 Seconds Blood Pressure Mean: 90 Progress Note : Progress Note Seen and evaluated. Chest x-ray results and film reviewed. Call was made to Dr. Beltran's office. He actually came by and spoke with me and we examined the patient together. There is no significant findings currently. The small stripe of air would be expected in a peritoneal dialysis patient and is not concerning. She is nontender on abdominal exam. She is afebrile and satting 100% on room air while resting. Blood pressure is appropriate as well as heart rate. At this time, further imaging or evaluation is not indicated. This was discussed with the patient and family as well as her primary care doctor and we all agree. Discharged home with return precautions. Patient and family verbalized un derstanding of instructions and agreement with plan. Departure Impression Primary Impression: Encounter for medical screening examination Additional Impressions: Pneumoperitoneum Peritoneal dialysis status Disposition: HOME, SELF-CARE Condition: Stable Departure-Patient Inst. Decision time for Depature: 16:01 Referrals: CALEB BELTRAN MD (PCP/Family) Primary Care Physician Patient Instructions: End Stage Kidney Disease (DC) Add. Discharge Instructions: All discharge instructions reviewed with patient and/or family. Voiced understanding. Continue home peritoneal dialysis as previously scheduled. Follow-up with your law enforcement director for results of testing of the dialysis fluid. Continue home medications as previously prescribed. Return for breathing problems, weakness, fever, abdominal pain or other concerns as needed. TERRIE BROCK MD Nov 22, 2020 16:02
== END 2020-11-22 16:06 | disposition home or self-care (01) ==
LOC: EDUNIT# 15:32 → ER FS 15:35
DX: K66.8 Other specified disorders of peritoneum (principal); I10 Essential (primary) hypertension; Z99.2 Dependence on renal dialysis; Z86.73 Personal history of transient ischemic attack (TIA), and cerebral infarction without residual deficits
CPT/HCPCS: 99281

== ENCOUNTER → 2020-11-22 | Outpatient (CLI) | payer MEDICARE ==
--- NOTE | 2020-11-22 14:33 | Diagnostic Imaging Report ---
INDICATION: Shortness of breath COMPARISON: None. FINDINGS: Frontal and lateral views the chest demonstrate slight cardiac enlargement. Lungs are otherwise clear. There is nonspecific lucency under the right hemidiaphragm which is possibly artifact. However, small pneumoperitoneum is not excluded. There is no pneumothorax but osseous structures normal. IMPRESSION: 1. Cardiac enlargement without overt pulmonary edema or acute infiltrate 2. Artifact versus pneumoperitoneum under the right hemidiaphragm. Report was called Judith Valdes nurse office of Dr. Walter by kevin at 2:35p.m. Dictated by: Dictated on workstation # [id number]
== END ==
LOC: RAD FS 12:38
PROVIDERS: ATTEND Family Medicine
DX: I51.7 Cardiomegaly (principal)
CPT/HCPCS: 71046

== ENCOUNTER → 2020-12-21 | Outpatient (CLI) | payer MEDICARE | LOC: IHC 12:52 | PROVIDERS: ATTEND Family Medicine | DX: E46 Unspecified protein-calorie malnutrition (principal); R62.7 Adult failure to thrive | CPT/HCPCS: 84134 ==